=== PATIENT | male | born 1990 | race Caucasian/White ===

== ENCOUNTER 2017-08-20 18:40 | Emergency (ER) | payer SELFPAY ==
[2017-08-20] MEDS ORDERED: Take Home: Amoxicillin/Clavulanate K 875-125 MG Tab, 2 Tab Pack PO ONE (19:02)
[2017-08-20] MEDS ORDERED: Take Home: Codeine/Promethazine 10-6.25 MG/5 ML Syrup 5 ML, 2 Cup Pack PO ONE (19:02)
--- NOTE | 2017-08-20 23:01 | EDM.PDOC ---
ED HPI GENERAL MEDICAL PROBLEM - General Chief Complaint: Gastrointestinal Problem Time Seen by Provider: 08/20/17 19:00 Source of Information: Reports: Patient History Limitations: Reports: No Limitations - History of Present Illness INITIAL COMMENTS - FREE TEXT/NARRATIVE: Pt. states that he has been facial pain, sore throat, and some coughing. Pt. states that he has been experiencing the discomfort for approx. 10 days. He states that he recently has had some fever and chills as well. Pt. states that the facial pain is located in the area of the frontal sinuses, and he also feels pressure behind the eyes as well. He states that the mucus blown from his nose is greenish with blood in it occasionally. Onset: Today Onset Date: 08/20/17 Onset Time: 23:01 Location: Reports: Generalized - Related Data Allergies Allergy/AdvReac Type Severity Reaction Status Date / Time No Known Allergies Allergy Verified 08/20/17 18:54 Home Meds: Home Meds . [No Known Home Meds] 08/20/17 [History] Past Medical History - Past Health History Medical/Surgical History: Denies Medical/Surgical History Social & Family History - Tobacco Use Smoking Status *Q: Unknown Ever Smoked ED ROS GENERAL - Review of Systems Review Of Systems: See Below Constitutional: Reports: Fever, Chills, Malaise, Fatigue HEENT: Reports: Throat Pain Respiratory: Reports: No Symptoms Cardiovascular: Reports: No Symptoms Endocrine: Reports: No Symptoms GI/Abdominal: Reports: No Symptoms Musculoskeletal: Reports: No Symptoms Skin: Reports: No Symptoms Neurological: Reports: No Symptoms Psychiatric: Reports: No Symptoms Hematologic/Lymphatic: Reports: No Symptoms Immunologic: Reports: No Symptoms ED EXAM, GI/ABD - Physical Exam Exam: See Below Exam Limited By: No Limitations General Appearance: Alert, WD/WN, No Apparent Distress Eyes: Bilateral: Normal Appearance, EOMI Ears: Normal External Exam, Normal Canal, Hearing Grossly Normal, Normal TMs Nose: Nasal Tenderness (frontal and ethmoid facial pain) Throat/Mouth: Normal Inspection, Normal Lips, Normal Teeth, Normal Gums, Normal Oropharynx, Normal Voice, No Airway Compromise Head: Atraumatic, Normocephalic Neck: Normal Inspection, Supple, Non-Tender, Full Range of Motion Respiratory/Chest: No Respiratory Distress, Lungs Clear, Normal Breath Sounds, No Accessory Muscle Use, Chest Non-Tender Cardiovascular: Normal Peripheral Pulses, Regular Rate, Rhythm, No Edema, No Gallop, No JVD, No Murmur, No Rub GI/Abdominal Exam: Normal Bowel Sounds, Soft, Non-Tender, No Organomegaly, No Distention, No Abnormal Bruit, No Mass, Pelvis Stable (Male) Exam: Deferred Back Exam: Normal Inspection, Full Range of Motion, NT Extremities: Normal Inspection, Normal Range of Motion, Non-Tender, Normal Capillary Refill, No Pedal Edema Neurological: Alert, Oriented, CN II-XII Intact, Normal Cognition, Normal Gait, Normal Reflexes, No Motor/Sensory Deficits Psychiatric: Normal Affect, Normal Mood Skin Exam: Warm, Dry, Intact, Normal Color, No Rash Lymphatic: No Adenopathy Course - Vital Signs Last Recorded V/S: Last Vital Signs Temp 36.8 C 08/20/17 18:50 Pulse 97 08/20/17 18:50 Resp 20 08/20/17 18:50 BP 154/93 H 08/20/17 18:50 Pulse Ox 98 08/20/17 18:50 - Orders/Labs/Meds Meds: Medications Discontinued Medications Generic Name Dose Route Start Last Admin Trade Name Willianq PRN Reason Stop Dose Admin Amoxicillin/Clavulanate Potassium 1 packet 08/20/17 19:02 08/20/17 19:10 Take Home: Amox/Clavulanate 875-12, 2 Tab Pac PO 08/20/17 19:03 1 packet ONETIME ONE Administration Promethazine HCl/Codeine 1 packet 08/20/17 19:02 08/20/17 19:10 Take Home: Codeine/Prometh 10-6.25 Mg, 2 Pack PO 08/20/17 19:03 1 packet ONETIME ONE Administration Departure - Departure Time of Disposition: 19:15 Disposition: Home, Self-Care 01 Condition: Good Clinical Impression: Sinusitis - Discharge Information Instructions: Sinusitis, Adult, [id number] Forms: ED Department Discharge Additional Instructions: Augmentin 875mg twice daily for 10 days phenergan with codeine 5 ml every 6 hours for cough Follow-up in clinic in 7-10 days
== END 2017-08-20 19:10 | disposition home or self-care (01) ==
LOC: VM.ED 18:40
DX: J32.9 Chronic sinusitis, unspecified (principal)
CPT/HCPCS: 99283; A9270